=== PATIENT | female | born 1960 | race Caucasian/White ===

== ENCOUNTER 2018-08-14 23:47 | Emergency (ER) | payer MEDICAID ==
[2018-08-15] MEDS: HYDROCODONE/APAP (10/325) TAB PO (05:17)
[2018-08-15] MEDS: ONDANSETRON (ODT) 4 MG TAB ODT (05:18)
[2018-08-15] MEDS: KETOROLAC 30 MG INJ IM (07:13)
== END 2018-08-15 07:15 | disposition home or self-care (01) ==
LOC: E/R 23:47
DX: S43.401A Unspecified sprain of right shoulder joint, initial encounter (principal); R93.0 Abnormal findings on diagnostic imaging of skull and head, not elsewhere classified; W10.9XXA Fall (on) (from) unspecified stairs and steps, initial encounter; Y92.9 Unspecified place or not applicable
CPT/HCPCS: 70450; 71045; 73030-RT; 99284-25